=== PATIENT | female | born 1955 | race Caucasian/White ===

== ENCOUNTER → 2025-02-14 08:26 | Outpatient (REF) | payer MEDICARE, SELFPAY | LOC: PAVMRI 08:26 | PROVIDERS: ATTENDING PHYSICIAN Internal Medicine Cardiovascular Disease; PRIMARYCARE PHYSICIAN Family Medicine | DX: I34.0 Nonrheumatic mitral (valve) insufficiency (principal) | CPT/HCPCS: 75561; 75565; A9585 ==